=== PATIENT | female | born 1985 | race Caucasian/White ===

== ENCOUNTER → 2018-10-16 14:41 | Outpatient (CLI) | payer OTHER, SELFPAY ==
[2018-10-21 10:33] LABS: HPV Reflexed? NOT INDICATED
== END ==
PROVIDERS: Referring Provider Obstetrics & Gynecology; Visit Provider Obstetrics & Gynecology
DX: Z12.4 Encounter for screening for malignant neoplasm of cervix (principal)
CPT/HCPCS: 88175; G0145

== ENCOUNTER → 2019-12-01 14:01 | Outpatient (CLI) | payer OTHER, SELFPAY ==
[2019-12-04 09:07] LABS: Age Gdln ACOG Testing 30-65 (.)
[2019-12-04 13:28] LABS: HPV APTIMA, High Risk Negative (Negative); HPV Reflexed? YES, CHARGE PATIENT
== END ==
PROVIDERS: Visit Provider Obstetrics & Gynecology
DX: Z12.4 Encounter for screening for malignant neoplasm of cervix (principal)
CPT/HCPCS: 87624; 88175; G0145

== ENCOUNTER → 2021-08-11 09:08 | Outpatient (CLI) | payer OTHER, SELFPAY ==
[2021-08-11 09:37] LABS: Absolute Lymphocyte Count 1.84 X10^3/uL (0.83-4.51); Basophil# 0.01 X10^3/uL; Basophil% 0.1 % (0-1); Eosinophil# 0.06 X10^3/uL; Eosinophils% 0.6 % (0-5); Hematocrit 45.9 % (37-47); Hemoglobin 15.3 g/dL (12.0-15.0); Lymphocyte # 1.84 X10^3/ul (0.83-4.51); Lymphocyte % 19.4 % (19-41); Mean Corp Hgb Conc 33.3 g/dL (32-36); Mean Corpuscular Hgb 30.5 pg (27.0-32.0); Mean Corpuscular Volume 91.4 fL (81-99); Mean Platelet Vol. 12.6 fl (6.2-12.0); Monocyte# 0.57 X10^3/uL; NRBC Flagged by Analyzer 0 % (0-5); Neutrophil # 6.97 X10^3/uL (2.7-7.7); Neutrophil % 73.5 % (47-70); Platelet Count 223 K/mm3 (150-450); RBC Distribution Width SD 40.2 fl (35.1-43.9); Red Blood Count 5.02 M/mm3 (4.2-5.4); White Blood Count 9.5 K/mm3 (4.4-11.0)
[2021-08-11 10:08] LABS: Hemoglobin A1c 5.1 % (3.8-5.6)
[2021-08-11 10:30] LABS: Cholesterol 204 mg/dL (200); Estradiol 67.6 pg/mL; Follicle Stimulating Hormone 6.6 mIU/mL; High Density Lipoprotein 66 mg/dL; Luteinizing Hormone 11.5 mIU/mL; T4 Free Direct 1.01 ng/dL (0.76-1.46); Thyroid Stim Hormone (TSH) 1.47 uIU/mL (0.358-3.74); Triglycerides 116 mg/dL; Very Low Density Lipoprotein 23 mg/dL (5-40)
[2021-08-11 10:55] LABS: HIV - WCH Non-Reactive (Nonreactive); Hepatitis B Surface Antigen Non-Reactive (Nonreactive); Hepatitis C Antibody Non-Reactive (Nonreactive); Rubella IgG Reactive (Nonreactive); Syphilis Antibodies Non-reactive
[2021-08-20 08:40] LABS: Testosterone Free 5.7 pg/mL (0.0-4.2)
== END ==
PROVIDERS: Visit Provider Obstetrics & Gynecology
DX: N93.9 Abnormal uterine and vaginal bleeding, unspecified (principal)
CPT/HCPCS: 36415; 80061; 82627; 82670; 83001; 83002; 83036; 84402; 84439; 84443; 85025; 86703; 86762; 86780; 86803; 87340; 82626

== ENCOUNTER → 2022-04-27 | Outpatient (CLI) | payer OTHER, SELFPAY ==
[2022-04-27 11:22] LABS: Glucose Challenge Gest 1H 50g 70 mg/dL (70-140)
== END | disposition home or self-care (01) ==
LOC: WOBLAB 08:42
PROVIDERS: Visit Provider Obstetrics & Gynecology
DX: Z34.82 Encounter for supervision of other normal pregnancy, second trimester (principal)
CPT/HCPCS: 36415; 82950

== ENCOUNTER → 2022-08-24 | Outpatient (CLI) | payer OTHER, SELFPAY ==
[2022-08-24 09:21] LABS: Absolute Lymphocyte Count 1.22 X10^3/uL (0.83-4.51); Basophil# 0.02 X10^3/uL; Basophil% 0.2 % (0-1); Eosinophil# 0.04 X10^3/uL; Eosinophils% 0.4 % (0-5); Hematocrit 38.7 % (37-47); Hemoglobin 13.3 g/dL (12.0-15.0); Lymphocyte # 1.22 X10^3/ul (0.83-4.51); Lymphocyte % 11.1 % (19-41); Mean Corp Hgb Conc 34.4 g/dL (32-36); Mean Corpuscular Hgb 30.2 pg (27.0-32.0); Mean Platelet Vol. 12.5 fl (6.2-12.0); Monocyte# 0.66 X10^3/uL; NRBC Flagged by Analyzer 0 % (0-5); Neutrophil # 8.96 X10^3/uL (2.7-7.7); Neutrophil % 81.4 % (47-70); Platelet Count 167 K/mm3 (150-450); RBC Distribution Width CV 12.7 % (11.6-14.6); RBC Distribution Width SD 40.8 fl (35.1-43.9)
[2022-08-24 09:44] LABS: Glucose Challenge Gest 1H 50g 120 mg/dL (70-140)
== END | disposition home or self-care (01) ==
LOC: WOBLAB 09:11
PROVIDERS: Visit Provider Obstetrics & Gynecology
DX: Z34.83 Encounter for supervision of other normal pregnancy, third trimester (principal)
CPT/HCPCS: 36415; 82950; 85025; 86850

== ENCOUNTER 2022-11-01 06:45 | Inpatient (IN) | payer OTHER, SELFPAY ==
[2022-11-01] VITALS (59 sets, daily range): BP systolic 116–198; BP diastolic 59–85; PULSE 58–75; RESP 14–17; TEMP 36.2–37.2; O2SAT 94–98; BMI 42.5
[2022-11-01] MEDS: Lactated Ringers 1,000 ML 50 ML IV (08:10)
[2022-11-01 08:32] LABS: Absolute Lymphocyte Count 1.46 X10^3/uL (0.83-4.51); Absolute Neutrophil Count 8.7 X10^3/uL (2.0-7.7); Basophil# 0.01 X10^3/uL; Basophil% 0.1 % (0-1); Eosinophil# 0.04 X10^3/uL; Eosinophils% 0.4 % (0-5); Hematocrit 42.1 % (37-47); Hemoglobin 14.1 g/dL (12.0-15.0); Lymphocyte # 1.46 X10^3/ul (0.83-4.51); Mean Corp Hgb Conc 33.5 g/dL (32-36); Mean Corpuscular Hgb 29.7 pg (27.0-32.0); Mean Corpuscular Volume 88.8 fL (81-99); Mean Platelet Vol. 13.9 fl (6.2-12.0); Monocyte# 0.88 X10^3/uL; Monocyte% 7.9 % (0-10); NRBC Flagged by Analyzer 0 % (0-5); Neutrophil % 77.7 % (47-70); Platelet Count 155 K/mm3 (150-450); RBC Distribution Width CV 13.1 % (11.6-14.6); RBC Distribution Width SD 42.3 fl (35.1-43.9); Red Blood Count 4.74 M/mm3 (4.2-5.4); White Blood Count 11.2 K/mm3 (4.4-11.0)
[2022-11-01] MEDS: miSOPROStol 25 MCG TABLET VAGINAL ×4 (08:45→21:29)
[2022-11-01 08:57] LABS: AST(SGOT) 22 U/L (15-37); Alanine Aminotransfer ALT/SGPT 25 U/L (13-56); EST Glomerular Filtration Rate 101 mL/min (>60); Est Glom Filt Rate - Afr Amer 123 mL/min (>60); Estimated Creatinine Clearance 120.15 ml/min; Uric Acid 4.9 mg/dL (2.6-6.0)
[2022-11-01 10:42] LABS: Protein, Urine (Random) < 6.0 mg/dL (<11.9); Protein:Creat Ratio 276 mg/g CRE (0-200)
[2022-11-01 12:19] LABS: Hepatitis B Surface Antigen Non-Reactive (Nonreactive); Hepatitis C Antibody Non-Reactive (Nonreactive)
[2022-11-01] MEDS: Penicillin G 3,000,000 Units 50 ML 100 UNITS IV ×2 (14:13→21:40)
[2022-11-01] MEDS: Labetalol (Prefilled) 20 MG/4 ML IV (15:09)
[2022-11-01] MEDS: 0.9% Saline Lock 10 ML Syringe IV (15:30)
[2022-11-01] MEDS: Labetalol 100 MG Tablet PO ×2 (15:37→21:40)
[2022-11-01] MEDS: Magnesium Sulfate 4gm/100mL 4 GM/100 ML IV.SOLN. IV (15:39)
[2022-11-01] MEDS: Magnesium Sulfate 4gm/100mL 2 GM/50 ML IV.SOLN. IV (15:58)
[2022-11-01] MEDS: Magnesium Sulfate 20 GM/500 ML BAG IV (16:14)
--- NOTE | 2022-11-01 17:13 | PCM.HP.BLA ---
History and Physical Date of Admission: 11/01/22 Chief complaint: Induction of labor term History present illness: 37-year-old G1, P0 at 39 weeks and 1 day with SHIMA 11/07/2022 arrives for induction of labor at term. Denies headache, vision changes, chest pain, shortness of breath, nausea vomit, right upper quadrant pain. Patient states good movement. is complicated by AMA Obstetric history: G1: Current Past medical history: None Medications: None Allergies: Hydrocodone Past surgical history: ACL Social history: Denies smoking, alcohol use, drug use Family history: Denies history DVT or PE Review of systems: Besides above pertinent positives a full review of systems was performed and found to be negative Physical exam: Vitals: Pulse 64 SPO2 97% on room air General: Normal-appearing no acute distress HEENT: Normocephalic/atraumatic no cervical of adenopathy Cardiac/respiratory: No use accessory muscles, nonlabored breathing Abdomen: Soft, nontender, gravid Extremities: No peripheral edema normal peripheral pulses Psych: Normal affect normal demeanor nonpressured speech Labs: White blood cell count 11.2 hemoglobin 14.1 hematocrit 42.1% platelets 155. Creatinine 0.7 AST 22 ALT 25 urine protein creatinine ratio 0.276. Blood type O- antibody negative Assessment plan: 37-year-old at 39 weeks and 1 day arrived for induction of labor at term, was started on Cytotec 25 mcg vaginally noted to have severe range blood pressures treated with labetalol 20 mg IV and maintenance dose of labetalol 100 mg twice daily was started. Magnesium 6 g bolus at 2 g an hour was started. Patient diagnosed with preeclampsia with severe features based on severe range blood pressures. Educated patient on severe preeclampsia and its diagnosis and treatment. We will continue to monitor blood pressures. HELLP labs stable. Continue induction via Cytotec. AMA, NIPT within normal limits. GBS positive continue penicillin. Anesthesia to see
[2022-11-01] MEDS: Penicillin G 3,000,000 Units 50 ML 60 UNITS IV (18:23)
[2022-11-01] MEDS: Acetaminophen 500 MG Tablet PO (19:50)
[2022-11-01] MEDS: Ondansetron 4 MG/2 ML Vial IV (22:50)
[2022-11-02] VITALS (115 sets, daily range): BP systolic 95–169; BP diastolic 51–90; PULSE 26–109; RESP 16–21; TEMP 36.1–37.3; O2SAT 80–98
--- NOTE | 2022-11-02 01:35 | NURSING ---
urine hat moved back in toilet
[2022-11-02] MEDS: LACTATED RINGERS 500 ML 999 ML IV ×3 (01:39→23:30)
[2022-11-02] MEDS: Magnesium Sulfate 20 GM/500 ML BAG IV ×3 (01:40→21:13)
[2022-11-02] MEDS: Oxytocin 15 Units/NS 250ml 15 UNITS/250 ML IV.SOLN 2 UNITS IV (01:42)
[2022-11-02] MEDS: Penicillin G 3,000,000 Units 50 ML 100 UNITS IV ×6 (02:11→22:10)
[2022-11-02] MEDS: fentaNYL-bupivacaine (epidural) 100 ML BAG EPIDURAL ×5 (02:46→21:10)
[2022-11-02] MEDS: Ondansetron 4 MG/2 ML Vial IV ×4 (03:23→21:23)
[2022-11-02] MEDS: Mag Hydrox/Al Hydrox/Simeth 30 ML UDC PO (05:25)
--- NOTE | 2022-11-02 08:42 | PCM.PN.OB ---
Subjective Subjective Patient uncomfortable on left side, improved comfort on right side after epidural placement Objective Data Objective Data Vital Signs: Vital Signs Temp Pulse Resp BP Pulse Ox O2 Del Method 97.2 F L 70 18 169/90 H 93 Room Air 11/02/22 08:00 11/02/22 08:17 11/02/22 08:00 11/02/22 08:17 11/02/22 08:11 11/02/22 08:00 Oxygen Delivery Method Room Air Weight: 296 lb Body Mass Index (BMI) 42.5 Intake & Output: Intake and Output for Last 24 Hours 10/31/22 11/01/22 11/02/22 23:59 23:59 23:59 Intake Total 1044.59 / 1044.59 1816.94 / 1816.94 Output Total 530 / 530 757 / 757 Balance 514.59 / 514.59 1059.94 / 1059.94 Lab / Micro Data Result Diagrams: 11/01/22 08:10 11/01/22 08:10 Labs: Laboratory Results - last 24 hr 11/01/22 08:10: Blood Type O NEGATIVE, Antibody Screen NEGATIVE 11/01/22 08:10: Creatinine 0.70, Estim Creat Clear Calc 120.15, Est GFR (MDRD) Af Amer 123, Est GFR (MDRD) Non-Af 101, Uric Acid 4.9, AST 22, ALT 25 11/01/22 10:15: U Random Total Protein < 6.0, Urine Creatinine 21.00, Protein/Creatinin Ratio 276 H 11/01/22 11:15: Hep Bs Antigen Non-Reactive, Hepatitis C Antibody Non-Reactive Physical Exam Const alert, oriented x3, no apparent distress, average body habitus, healthy appearing and well nourished HEENT normocephalic and moist oral mucous membranes Eyes PERRL Resp normal respiratory effort, no retractions and no use of accessory muscles Narrative: Cervical exam: 4/60/-3 Extremity normal to inspection, full ROM and no clubbing, cyanosis or edema Neuro moves all extremities and no focal motor deficits Psych mental status grossly normal, affect normal, speech normal and activity/motor behavior normal Assessment & Plan (1) : PLAN: Patient seen and examined. Epidural placed several hours ago but patient with severe left-sided pain with contractions. Will have anesthesia reevaluate patient. Discussed early results of replacement of epidural versus section with spinal. Patient states understanding and uncertain what she wants to do would like to see anesthesia. Preeclampsia with severe features, nonpersistent severe range blood pressures will treat if persistent and discussed with anesthesia pending their game plan.
[2022-11-02] MEDS: Labetalol 100 MG Tablet PO ×2 (10:02→21:32)
[2022-11-02] MEDS: Lactated Ringers 1,000 ML 50 ML IV (10:43)
[2022-11-02] MEDS: Acetaminophen 500 MG Tablet PO (11:58)
[2022-11-02] MEDS: 0.9% Saline Lock 10 ML Syringe IV (14:12)
[2022-11-02] MEDS: proCHLORPERazine 10 MG/2 ML Vial IV (14:37)
--- NOTE | 2022-11-02 15:12 | PN.OBGYN_ITS ---
Subjective Subjective Patient now with much improved comfort with replaced epidural. Resting comfortably in bed Objective Data Objective Data Vital Signs: Vital Signs Temp Pulse Resp BP Pulse Ox O2 Del Method 98.2 F 65 18 115/56 L 97 Room Air 11/02/22 14:00 11/02/22 14:55 11/02/22 14:00 11/02/22 14:55 11/02/22 14:12 11/02/22 14:00 Oxygen Delivery Method Room Air Weight: 296 lb Body Mass Index (BMI) 42.5 Intake & Output: Intake and Output for Last 24 Hours 10/31/22 11/01/22 11/02/22 23:59 23:59 23:59 Intake Total 1044.59 / 1044.59 3291.34 / 3291.34 Output Total 530 / 530 1627 / 1627 Balance 514.59 / 514.59 1664.34 / 1664.34 Lab / Micro Data Result Diagrams: 11/01/22 08:10 11/01/22 08:10 Physical Exam Const alert, oriented x3, no apparent distress, average body habitus, healthy appearing and well nourished HEENT normocephalic and moist oral mucous membranes Eyes PERRL Neck full ROM Resp normal respiratory effort, no retractions and no use of accessory muscles Narrative: Cervical exam: Unchanged. AROM clear fluid. FSE placed, IUPC placed Extremity normal to inspection, full ROM and no clubbing, cyanosis or edema Neuro moves all extremities and no focal motor deficits Psych mental status grossly normal, affect normal, speech normal and activity/motor behavior normal Assessment & Plan (1) : PLAN: Patient seen and examined. AROM clear fluid. IUPC and FSE placed. Now patient comfortable with epidural after replacement of epidural. We will continue to titrate Pitocin. Preeclampsia with severe features continue ma gnesium and will continue to monitor blood pressures
--- NOTE | 2022-11-02 21:14 | PCM.PN.OB ---
Subjective Subjective Patient now comfortable with epidural. Mild nausea Objective Data Objective Data Vital Signs: Vital Signs Temp Pulse Resp BP Pulse Ox O2 Del Method 99.2 F H 75 20 H 117/66 96 Room Air 11/02/22 20:36 11/02/22 20:36 11/02/22 20:36 11/02/22 20:36 11/02/22 20:36 11/02/22 20:36 Oxygen Delivery Method Room Air Weight: 296 lb Body Mass Index (BMI) 42.5 Intake & Output: Intake and Output for Last 24 Hours 10/31/22 11/01/22 11/02/22 23:59 23:59 23:59 Intake Total 1044.59 / 1044.59 3966.84 / 3966.84 Output Total 530 / 530 2382 / 2382 Balance 514.59 / 514.59 1584.84 / 1584.84 Lab / Micro Data Result Diagrams: 11/01/22 08:10 11/01/22 08:10 Physical Exam Const alert, oriented x3, no apparent distress, average body habitus, healthy appearing and well nourished HEENT normocephalic and moist oral mucous membranes Eyes PERRL Neck full ROM Resp normal respiratory effort, no retractions and no use of accessory muscles Narrative: Cervical exam: Unchanged. FSE replaced Extremity normal to inspection and full ROM Skin no rashes or lesions noted Neuro moves all extremities and no focal motor deficits Psych mental status grossly normal, affect normal, speech normal and activity/motor behavior normal Assessment & Plan (1) : PLAN: Patient seen and examined. Called by nursing to evaluate and educate for section. Patient overall with exhaustion and considering section. Educated patient on risk benefits alternatives section we discussed risk of infection, risk with her BMI, risk with her preeclampsia with severe features on magnesium, risk of blood loss, discussed postoperative recovery. All questions answered from patient and patient's partner. Discussed risk benefits alternatives of continuing induction. Patient states understanding and elects to continue induction. We will continue to titrate Pitocin. FSE replaced. Educated patient on expectations for induction going forward. Patient appreciative
[2022-11-02] MEDS: Amnioinfusion- 0.9% NS 1,000 ML IV.SOLN. 1000 ML INTRA-UTER (21:56)
[2022-11-03] VITALS (81 sets, daily range): BP systolic 108–152; BP diastolic 56–84; PULSE 63–83; RESP 16–24; TEMP 36.2–37.3; O2SAT 90–100
[2022-11-03] MEDS: Ondansetron 4 MG/2 ML Vial IV (01:17)
[2022-11-03] MEDS: fentaNYL-bupivacaine (epidural) 100 ML BAG EPIDURAL ×2 (01:32→07:11)
[2022-11-03] MEDS: Penicillin G 3,000,000 Units 50 ML 100 UNITS IV ×2 (02:04→06:22)
[2022-11-03] MEDS: Oxytocin 15 Units/NS 250ml 15 UNITS/250 ML IV.SOLN 20 UNITS IV (04:00)
[2022-11-03] MEDS: Magnesium Sulfate 20 GM/500 ML BAG IV ×2 (07:15→17:20)
[2022-11-03] MEDS: Carboprost Tromethamine 250 MCG/ML Ampul IM (08:19)
[2022-11-03] MEDS: miSOPROStol 200 MCG Tablet 1000 MCG RC (08:37)
--- NOTE | 2022-11-03 08:46 | EX.PCM.OBRPT ---
Vaginal Delivery Operative Information Date of Procedure: 11/03/22 Findings Description of Procedure: Preop diagnosis: Term, preeclampsia with severe features, maternal exhaustion Postop diagnosis: Term, preeclampsia with severe features, maternal exhaustion Procedure: Vacuum-assisted vaginal delivery Surgeon: Lenin Padilla MD Anesthesia: Epidural EBL: 400 cc Complications: None Findings: Male in vertex position MICHELLE Apgars 8/9. Second-degree midline perineal laceration and periurethral laceration. Consent: Patient arrived for induction of labor with AMA at term found to have preeclampsia with severe features treated appropriately. Induction via Cytotec and later Pitocin. Patient subsequently became 10 cm dilated and began pushing. After 4 hours of pushing patient noted to be MICHELLE +2 station. Pelvis felt adequate and appropriate for vaginal delivery. Fetus palpated appropriate size. Patient was comfortable with epidural. Patient with maternal exhaustion. Discussed options for section versus vacuum assisted vaginal delivery educated patient on risk benefits alternatives of each procedure. Patient desired to proceed with vacuum delivery, patient understands risk of cephalhematoma for baby and shoulder dystocia. The process of the vacuum delivery was explained. Procedure: Fischer catheter in place emptying bladder. Vaginal examination reconfirmed MICHELLE +2 station. A Kiwi vacuum was applied over the sagittal suture about 3 cm in from the posterior fontanelle toward the face. Vacuum pressure was applied. The edge of the vacuum cup was carefully examined and no maternal tissue was entrapped under the cup. Right hand applied gentle horizontal traction along the axis of the pelvis and coordination with uterine contractions and maternal pushing. 1 pull with a vacuum was performed. The handle of the vacuum device was gradually elevated with the perineum has began to bulge. The cup did not pop off the head during the procedure. The cup was removed after the head was delivered. Head and shoulders were delivered with ease. Cord was clamped and cut. Baby handed off to patient. Placenta was delivered via cord traction and fundal massage. IV oxytocin was initiated in order to facilitate uterine contractions. Prophylactic Hemabate IM and rectal Cytotec 1000 mcg was given. Cervix and vaginal falk were thoroughly examined. Second-degree midline perineal laceration and periurethral laceration were noted and repaired in typical fashion. Infant was examined after delivery, no visible lacerations or bruises were found.
[2022-11-03] MEDS: Oxytocin 15 Units/NS 250ml 15 UNITS/250 ML IV.SOLN 83 UNITS IV (09:15)
[2022-11-03] MEDS: Lactated Ringers 1,000 ML 50 ML IV (09:49)
--- NOTE | 2022-11-03 11:25 | NURSING ---
Epidural catheter removed, blue tip intact.
[2022-11-03] MEDS: Labetalol 100 MG Tablet PO (11:26)
[2022-11-03] MEDS: Ibuprofen 600 MG Tablet PO ×2 (11:26→18:56)
[2022-11-03] MEDS: Benzocaine/Lanolin/Aloe Vera 1 SPRAY EACH TOPICAL (11:28)
[2022-11-03 12:14] LABS: Magnesium 6.2 mg/dL (1.6-2.6)
[2022-11-03 18:46] LABS: Magnesium 6.3 mg/dL (1.6-2.6)
[2022-11-03] MEDS: Senna/Docusate Sodium 1 Tablet PO (20:43)
[2022-11-03] MEDS: Acetaminophen 500 MG Tablet 1000 MG PO (20:43)
[2022-11-04] VITALS (23 sets, daily range): BP systolic 95–137; BP diastolic 47–69; PULSE 64–81; RESP 16–18; TEMP 36.2–36.8; O2SAT 90–98
[2022-11-04] MEDS: Ibuprofen 600 MG Tablet PO ×3 (01:55→16:23)
[2022-11-04] MEDS: Magnesium Sulfate 20 GM/500 ML BAG IV (03:26)
[2022-11-04] MEDS: Acetaminophen 500 MG Tablet 1000 MG PO ×3 (04:36→20:12)
--- NOTE | 2022-11-04 11:15 | PN.OBGYN_ITS ---
Subjective Subjective No overnight complaints. Denies headache, visual change, chest pain, shortness of breath, nausea vomit, right upper quadrant pain. Objective Data Objective Data Vital Signs: Vital Signs Temp Pulse Resp BP Pulse Ox O2 Del Method 98 F 81 16 135/65 H 98 Room Air 11/04/22 08:24 11/04/22 09:54 11/04/22 08:24 11/04/22 09:54 11/04/22 08:24 11/04/22 08:24 Oxygen Delivery Method Room Air Weight: 296 lb Body Mass Index (BMI) 42.5 Intake & Output: Intake and Output for Last 24 Hours 11/02/22 11/03/22 11/04/22 23:59 23:59 23:59 Intake Total 4641.84 / 5141.84 4085.32 / 4085.32 1415.58 / 1415.58 Output Total 2382 / 2382 2429 / 2429 300 / 300 Balance 2259.84 / 2759.84 1656.32 / 1656.32 1115.58 / 1115.58 Lab / Micro Data Result Diagrams: 11/01/22 08:10 11/01/22 08:10 Labs: Laboratory Results - last 24 hr 11/03/22 11:40: Screen NEGATIVE, Baby's Blood Type B POSITIVE, Baby's COLE NEGATIVE 11/03/22 11:40: Magnesium 6.2 H* 11/03/22 18:00: Magnesium 6.3 H* Physical Exam Const alert, oriented x3, no apparent distress, average body habitus, healthy appea ring and well nourished HEENT normocephalic and moist oral mucous membranes Eyes PERRL Neck full ROM Resp normal respiratory effort, no retractions and no use of accessory muscles GI GI Narrative: Soft, nontender, uterus firm and below umbilicus Extremity normal to inspection, full ROM and no clubbing, cyanosis or edema Neuro moves all extremities and no focal motor deficits Psych mental status grossly normal, affect normal, speech normal and activity/motor behavior normal Assessment & Plan (1) Vaginal delivery: PLAN: day 1 status post vacuum-assisted vaginal delivery for maternal exhaustion. Breast-feeding. Preeclampsia with severe features based on severe range blood pressures status post magnesium. Continue labetalol 100 mg p.o. twice daily. We will continue to monitor blood pressures. Likely home on day 3
[2022-11-04] MEDS: Labetalol 100 MG Tablet PO ×2 (11:18→21:56)
[2022-11-04] MEDS: 0.9% Saline Lock 10 ML Syringe IV (21:57)
[2022-11-05] VITALS (14 sets, daily range): BP systolic 133–200; BP diastolic 65–90; PULSE 55–73; RESP 15–18; TEMP 36.7–37.2; O2SAT 96–98
[2022-11-05] MEDS: Ibuprofen 600 MG Tablet PO ×3 (01:59→23:59)
[2022-11-05] MEDS: Acetaminophen 500 MG Tablet 1000 MG PO ×2 (04:48→21:36)
[2022-11-05] MEDS: Benzocaine/Lanolin/Aloe Vera 1 SPRAY EACH TOPICAL (04:48)
[2022-11-05] MEDS: Labetalol 100 MG Tablet PO ×2 (09:57→21:36)
--- NOTE | 2022-11-05 10:26 | PCM.PN.OB ---
Subjective Subjective Patient feeling well. No headache or vision changes, chest pain or shortness of breath, nausea or vomiting. Working on breast-feeding. Lochia minimal. Objective Data Objective Data Vital Signs: Vital Signs Temp Pulse Resp BP Pulse Ox O2 Del Method 98.9 F 69 16 145/69 H 98 Room Air 11/05/22 08:37 11/05/22 09:56 11/05/22 08:37 11/05/22 09:57 11/05/22 08:37 11/05/22 08:37 Oxygen Delivery Method Room Air Weight: 134.263 kg Body Mass Index (BMI) 42.5 Intake & Output: Intake and Output for Last 24 Hours 11/03/22 11/04/22 11/05/22 23:59 23:59 23:59 Intake Total 4085.32 / 4085.32 1415.58 / 1415.58 Output Total 2429 / 2429 300 / 300 Balance 1656.32 / 1656.32 1115.58 / 1115.58 Lab / Micro Data Result Diagrams: 11/01/22 08:10 11/01/22 08:10 Physical Exam Const alert, oriented x3 and no apparent distress HEENT normocephalic Head and Scalp: atraumatic Neck full ROM Resp normal respiratory effort Cardio regular rate GI normal to inspection, nondistended, normoactive bowel sounds GI Narrative: Uterus 2 cm below umbilicus Back/Spine normal ROM Extremity normal to inspection Extremity Narrative: Minimal pedal edema Neuro no focal motor deficits and no sensory deficits noted Psych mental status grossly normal and affect normal Assessment & Plan (1) Vaginal delivery: PLAN: day 2 status post vacuum-assisted vaginal delivery. Complicated by severe preeclampsia. Blood pressures controlled on 100 mg labetalol twice daily. We will repeat labs today. Asymptomatic. Status post 24 hours of magnesium sulfate. Plan discharge home tomorrow with 1 week blood pressure follow-up. (2) Severe pre-eclampsia:
[2022-11-05 11:38] LABS: Absolute Neutrophil Count 7.7 X10^3/uL (2.0-7.7); Basophil# 0.01 X10^3/uL; Basophil% 0.1 % (0-1); Eosinophil# 0.15 X10^3/uL; Eosinophils% 1.5 % (0-5); Mean Corp Hgb Conc 34.4 g/dL (32-36); Mean Corpuscular Hgb 31.2 pg (27.0-32.0); Mean Corpuscular Volume 90.7 fL (81-99); Mean Platelet Vol. 12.4 fl (6.2-12.0); Monocyte# 0.61 X10^3/uL; Monocyte% 6.1 % (0-10); NRBC Flagged by Analyzer 0 % (0-5); Neutrophil # 7.73 X10^3/uL (2.7-7.7); Neutrophil % 77.6 % (47-70); Platelet Count 139 K/mm3 (150-450); RBC Distribution Width CV 13.4 % (11.6-14.6); RBC Distribution Width SD 43.8 fl (35.1-43.9); Red Blood Count 3.53 M/mm3 (4.2-5.4)
[2022-11-05 11:55] LABS: ALB/GLOB Ratio 0.6 RATIO (0.9-2.4); AST(SGOT) 45 U/L (15-37); Alanine Aminotransfer ALT/SGPT 64 U/L (13-56); Albumin, Serum 2.1 g/dL (3.2-5.0); Alkaline Phosphatase 171 U/L (45-117); Anion Gap 9 (5-15); BUN 12 mg/dL (7-18); BUN/Creat Ratio 20.1 RATIO (10-20); Calcium,Total 8.4 mg/dL (8.5-10.1); Chloride 109 mmol/L (98-107); EST Glomerular Filtration Rate 121 mL/min (>60); Est Glom Filt Rate - Afr Amer 146 mL/min (>60); Estimated Creatinine Clearance 140.17 ml/min; Globulin 3.5 g/dL (2.2-4.2); Glucose 82 mg/dL (74-106); LDH 231 U/L (84-246); Potassium 4.1 mmol/L (3.5-5.1); Protein, Total 5.6 g/dL (6.4-8.2); Sodium Level 142 mmol/L (136-145)
[2022-11-05] MEDS: 0.9% Saline Lock 10 ML Syringe IV (19:11)
[2022-11-06] VITALS (13 sets, daily range): BP systolic 118–156; BP diastolic 64–90; PULSE 55–80; RESP 15–18; TEMP 36.2–37.2; O2SAT 95–99
[2022-11-06 04:38] LABS: Hematocrit 33.1 % (37-47); Hemoglobin 10.8 g/dL (12.0-15.0); Mean Corp Hgb Conc 32.6 g/dL (32-36); Mean Corpuscular Hgb 29.9 pg (27.0-32.0); Mean Corpuscular Volume 91.7 fL (81-99); Mean Platelet Vol. 12.8 fl (6.2-12.0); Platelet Count 149 K/mm3 (150-450); RBC Distribution Width CV 13.2 % (11.6-14.6); RBC Distribution Width SD 44.4 fl (35.1-43.9); Red Blood Count 3.61 M/mm3 (4.2-5.4); White Blood Count 10.2 K/mm3 (4.4-11.0)
[2022-11-06 05:05] LABS: ALB/GLOB Ratio 0.7 RATIO (0.9-2.4); AST(SGOT) 65 U/L (15-37); Alanine Aminotransfer ALT/SGPT 90 U/L (13-56); Albumin, Serum 2.3 g/dL (3.2-5.0); Alkaline Phosphatase 161 U/L (45-117); Anion Gap 6 (5-15); BUN 11 mg/dL (7-18); BUN/Creat Ratio 18.9 RATIO (10-20); Calcium,Total 8.7 mg/dL (8.5-10.1); Chloride 109 mmol/L (98-107); Creatinine, Serum 0.58 mg/dL (0.55-1.02); EST Glomerular Filtration Rate 124 mL/min (>60); Est Glom Filt Rate - Afr Amer 150 mL/min (>60); Globulin 3.4 g/dL (2.2-4.2); Glucose 80 mg/dL (74-106); Potassium 3.7 mmol/L (3.5-5.1); Protein, Total 5.7 g/dL (6.4-8.2); Sodium Level 141 mmol/L (136-145)
--- NOTE | 2022-11-06 08:36 | PN.OBGYN_ITS ---
Subjective Subjective Patient feeling well aside from some sciatic pain. Frustrated that she would like to go home today. Working on breast-feeding and pumping. Objective Data Objective Data Vital Signs: Vital Signs Temp Pulse Resp BP Pulse Ox O2 Del Method 98.8 F 69 18 148/85 H 95 Room Air 11/06/22 08:00 11/06/22 08:00 11/06/22 08:00 11/06/22 08:00 11/06/22 08:00 11/06/22 08:00 Oxygen Delivery Method Room Air Weight: 134.263 kg Body Mass Index (BMI) 42.5 Intake & Output: Intake and Output for Last 24 Hours 11/04/22 11/05/22 11/06/22 23:59 23:59 23:59 Intake Total 1415.58 / 1415.58 Output Total 300 / 300 Balance 1115.58 / 1115.58 Lab / Micro Data Attestation: I reviewed the patient's lab results. Result Diagrams: 11/06/22 04:20 11/06/22 04:20 Labs: Laboratory Results - last 24 hr 11/05/22 11:30: Sodium 142, Potassium 4.1, Chloride 109 H, Carbon Dioxide 24.0, Anion Gap 9, BUN 12, Creatinine 0.60, Estim Creat Clear Calc 140.17, Est GFR (MDRD) Af Amer 146, Est GFR (MDRD) Non-Af 121, BUN/Creatinine Ratio 20.1 H, Glucose 82, Calcium 8.4 L, Total Bilirubin 0.20, AST 45 H, ALT 64 H, Alkaline Phosphatase 171 H, Lactate Dehydrogenase 231, Total Protein 5.6 L, Albumin 2.1 L , Globulin 3.5, Albumin/Globulin Ratio 0.6 L 11/05/22 11:30: WBC 10.0, RBC 3.53 L, Hgb 11.0 L, Hct 32.0 L, MCV 90.7, MCH 31 .2, MCHC 34.4, RDW Std Deviation 43.8, RDW Coeff of Fernando 13.4, Plt Count 139 L, MPV 12.4 H, Immature Gran % (Auto) 0.700, Neut % (Auto) 77.6 H, Lymph % (Auto) 14.0 L, Terrell % (Auto) 6.1, Eos % (Auto) 1.5, Baso % (Auto) 0.1, Absolute Neuts (auto) 7.7, Absolute Lymphs (auto) 1.40, Nucleated RBC % 0 11/06/22 04:20: WBC 10.2, RBC 3.61 L, Hgb 10.8 L, Hct 33.1 L, MCV 91.7, MCH 29.9, MCHC 32.6 D, RDW Std Deviation 44.4 H, RDW Coeff of Fernando 13.2, Plt Count 149 L, MPV 12.8 H 11/06/22 04:20: Sodium 141, Potassium 3.7, Chloride 109 H, Carbon Dioxide 26.0, Anion Gap 6, BUN 11, Creatinine 0.58, Estim Creat Clear Calc 145.00, Est GFR (MDRD) Af Amer 150, Est GFR (MDRD) Non-Af 124, BUN/Creatinine Ratio 18.9, Glucose 80, Calcium 8.7, Total Bilirubin 0.30, AST 65 H, ALT 90 H, Alkaline Phosphatase 161 H, Total Protein 5.7 L, Albumin 2.3 L, Globulin 3.4, Albumi n/Globulin Ratio 0.7 L Physical Exam Const alert, oriented x3 and no apparent distress HEENT normocephalic Head and Scalp: atraumatic Neck full ROM Resp normal respiratory effort Cardio regular rate GI normal to inspection, nondistended, normoactive bowel sounds GI Narrative: Uterus 2 cm below umbilicus Back/Spine normal ROM Extremity normal to inspection Extremity Narrative: Minimal pedal edema Neuro no focal motor deficits and no sensory deficits noted Psych mental status grossly normal and affect normal Assessment & Plan (1) Severe pre-eclampsia: (2) Vaginal delivery: PLAN: day 3 status post vacuum-assisted vaginal delivery. Complicated by severe preeclampsia. Blood pressures controlled on 100 mg labetalol twice daily. Labs yesterday were within normal limits aside from slightly elevated AST and ALT. Repeat today showed increasing AST and ALT. Reviewed results with the patient. Recommend repeat labs this afternoon and tomorrow morning to assess for stability. Additionally patient had one-time severe range blood pressure yesterday afternoon, repeat was within normal limits. No changes to blood pressure medication at this time. Blood pressure cuff sent to pharmacy. If declining or stable, consider home tomorrow with follow-up in office on . Reviewed findings with patient and her husban d. Discussed recommendations at length. All questions answered. Reviewed plan with bedside nurse as well.
[2022-11-06] MEDS: Labetalol 100 MG Tablet PO (09:58)
[2022-11-06] MEDS: 0.9% Saline Lock 10 ML Syringe IV (11:47)
[2022-11-06 16:38] LABS: Hematocrit 36.3 % (37-47); Hemoglobin 12.4 g/dL (12.0-15.0); Mean Corp Hgb Conc 34.2 g/dL (32-36); Mean Corpuscular Hgb 31.2 pg (27.0-32.0); Mean Corpuscular Volume 91.4 fL (81-99); Mean Platelet Vol. 12.7 fl (6.2-12.0); Platelet Count 179 K/mm3 (150-450); RBC Distribution Width CV 13.2 % (11.6-14.6); Red Blood Count 3.97 M/mm3 (4.2-5.4); White Blood Count 11.4 K/mm3 (4.4-11.0)
[2022-11-06 17:12] LABS: ALB/GLOB Ratio 0.7 RATIO (0.9-2.4); AST(SGOT) 134 U/L (15-37); Alanine Aminotransfer ALT/SGPT 170 U/L (13-56); Albumin, Serum 2.6 g/dL (3.2-5.0); Alkaline Phosphatase 188 U/L (45-117); Anion Gap 5 (5-15); BUN 13 mg/dL (7-18); BUN/Creat Ratio 19.4 RATIO (10-20); Calcium,Total 9.5 mg/dL (8.5-10.1); Chloride 109 mmol/L (98-107); Creatinine, Serum 0.67 mg/dL (0.55-1.02); EST Glomerular Filtration Rate 105 mL/min (>60); Est Glom Filt Rate - Afr Amer 128 mL/min (>60); Estimated Creatinine Clearance 125.53 ml/min; Globulin 3.7 g/dL (2.2-4.2); Glucose 85 mg/dL (74-106); LDH 244 U/L (84-246); Potassium 3.9 mmol/L (3.5-5.1); Protein, Total 6.3 g/dL (6.4-8.2); Sodium Level 141 mmol/L (136-145)
[2022-11-06] MEDS: Lactated Ringers 1,000 ML 15 ML IV (18:32)
[2022-11-06] MEDS: Magnesium Sulfate 4gm/100mL 4 GM/100 ML IV.SOLN. IV (18:32)
[2022-11-06] MEDS: Magnesium Sulfate 4gm/100mL 2 GM/50 ML IV.SOLN. IV (18:55)
[2022-11-06] MEDS: Magnesium Sulfate 20 GM/500 ML BAG 50 GM CONT INF (19:08)
[2022-11-06] MEDS: Labetalol 100 MG Tablet 200 MG PO (21:05)
[2022-11-07] VITALS (20 sets, daily range): BP systolic 107–156; BP diastolic 57–86; PULSE 68–81; RESP 15–18; TEMP 36.1–36.7; O2SAT 94–100
[2022-11-07] MEDS: Magnesium Sulfate 20 GM/500 ML BAG 50 GM CONT INF (05:18)
[2022-11-07 05:50] LABS: Hematocrit 34.7 % (37-47); Hemoglobin 11.7 g/dL (12.0-15.0); Mean Corp Hgb Conc 33.7 g/dL (32-36); Mean Corpuscular Hgb 30.9 pg (27.0-32.0); Mean Corpuscular Volume 91.6 fL (81-99); Mean Platelet Vol. 12.2 fl (6.2-12.0); Platelet Count 182 K/mm3 (150-450); RBC Distribution Width CV 13.2 % (11.6-14.6); RBC Distribution Width SD 43.9 fl (35.1-43.9); Red Blood Count 3.79 M/mm3 (4.2-5.4)
--- NOTE | 2022-11-07 05:57 | PN.OBGYN_ITS ---
Subjective Subjective Bleeding minimal. Denies visual disturbances, chest pain or shortness of breath, nausea or vomiting, right upper quadrant pain. Reports mild left-sided headache. Objective Data Objective Data Vital Signs: Vital Signs Temp Pulse Resp BP Pulse Ox O2 Del Method 97.4 F L 74 18 130/74 H 96 Room Air 11/07/22 05:20 11/07/22 05:20 11/07/22 05:20 11/07/22 05:20 11/07/22 05:20 11/07/22 05:20 Oxygen Delivery Method Room Air Weight: 134.263 kg Body Mass Index (BMI) 42.5 Intake & Output: Intake and Output for Last 24 Hours 11/05/22 11/06/22 11/07/22 23:59 23:59 23:59 Intake Total 550 / 550 630 / 630 Output Total 600 / 600 400 / 400 Balance -50 / -50 230 / 230 Lab / Micro Data Attestation: I reviewed the patient's lab results. Result Diagrams: 11/07/22 05:38 11/06/22 16:20 Labs: Laboratory Results - last 24 hr 11/06/22 16:20: WBC 11.4 H, RBC 3.97 L, Hgb 12.4, Hct 36.3 L, MCV 91.4, MCH 31.2, MCHC 34.2, RDW Std Deviation 44.0 H, RDW Coeff of Fernando 13.2, Plt Count 179, MPV 12.7 H 11/06/22 16:20: Sodium 141, Potassium 3.9, Chloride 109 H, Carbon Dioxide 27.0, Anion Gap 5, BUN 13, Creatinine 0.67, Estim Creat Clear Calc 125.53, Est GFR (MDRD) Af Amer 128, Est GFR (MDRD) Non-Af 105, BUN/Creatinine Ratio 19.4, Glucose 85, Calcium 9.5, Total Bilirubin 0.30, AST 134 H, ALT 170 H, Alkaline Phosphatase 188 H, Lactate Dehydrogenase 244, Total Protein 6.3 L, Albumin 2.6 L , Globulin 3.7, Albumin/Globulin Ratio 0.7 L 11/07/22 05:38: WBC 9.0, RBC 3.79 L, Hgb 11.7 L, Hct 34.7 L, MCV 91.6, MCH 30.9, MCHC 33.7, RDW Std Deviation 43.9, RDW Coeff of Fernando 13.2, Plt Count 182, MPV 12.2 H Physical Exam Const alert, oriented x3 and no apparent distress HEENT normocephalic Head and Scalp: atraumatic Neck full ROM Resp normal respiratory effort Cardio regular rate GI normal to inspection, nondistended, normoactive bowel sounds GI Narrative: Uterus 2 cm below umbilicus Back/Spine normal ROM Extremity normal to inspection Extremity Narrative: Minimal pedal edema Neuro no focal motor deficits, no sensory deficits noted and deep tendon reflexes 2+ bilaterally Motor Exam: clonus absent Psych mental status grossly normal and affect normal Assessment & Plan (1) Severe pre-eclampsia: PLAN: day 4 status post vacuum-assisted vaginal delivery. Complicated by severe preeclampsia. Blood pressures controlled on 200 mg labetalol twice daily, increased evening of 11/06. Labs continue to trend upwards yesterday with a doubling in 12 hours. Patient was replaced on magnesium sulfate for 24 hours. We will continue labs every 12 hours. Reports mild headache this morning. Lovenox for DVT prophylaxis. (2) Vaginal delivery: PLAN: .
[2022-11-07 06:09] LABS: ALB/GLOB Ratio 0.7 RATIO (0.9-2.4); AST(SGOT) 139 U/L (15-37); Alanine Aminotransfer ALT/SGPT 210 U/L (13-56); Albumin, Serum 2.5 g/dL (3.2-5.0); Alkaline Phosphatase 174 U/L (45-117); Anion Gap 8 (5-15); BUN 12 mg/dL (7-18); BUN/Creat Ratio 15.6 RATIO (10-20); Calcium,Total 8.4 mg/dL (8.5-10.1); Chloride 105 mmol/L (98-107); Creatinine, Serum 0.77 mg/dL (0.55-1.02); EST Glomerular Filtration Rate 90 mL/min (>60); Est Glom Filt Rate - Afr Amer 109 mL/min (>60); Estimated Creatinine Clearance 109.22 ml/min; Globulin 3.7 g/dL (2.2-4.2); Glucose 103 mg/dL (74-106); LDH 223 U/L (84-246); Magnesium 4.7 mg/dL (1.6-2.6); Potassium 3.8 mmol/L (3.5-5.1); Protein, Total 6.2 g/dL (6.4-8.2); Sodium Level 138 mmol/L (136-145)
--- NOTE | 2022-11-07 06:28 | NURSING ---
Addendum entered by Marla Tan Held 11/07/22 06:36: Magnesium titrated to 2.5GM/Hr and verified with Elly Schumacher RN. Original Note: Magnesium titrated to 2.5GM/Hr and verified with ELAINE Sanabria.
[2022-11-07] MEDS: Ibuprofen 600 MG Tablet PO (07:49)
[2022-11-07] MEDS: Enoxaparin 40 MG/0.4 ML Syringe SC (09:35)
[2022-11-07] MEDS: Labetalol 100 MG Tablet 200 MG PO ×2 (09:36→21:55)
[2022-11-07 12:14] LABS: Anion Gap 8 (5-15); BUN 11 mg/dL (7-18); BUN/Creat Ratio 14.1 RATIO (10-20); Calcium,Total 8.2 mg/dL (8.5-10.1); Chloride 105 mmol/L (98-107); Creatinine, Serum 0.78 mg/dL (0.55-1.02); EST Glomerular Filtration Rate 89 mL/min (>60); Est Glom Filt Rate - Afr Amer 107 mL/min (>60); Estimated Creatinine Clearance 107.82 ml/min; Glucose 115 mg/dL (74-106); Magnesium 6.2 mg/dL (1.6-2.6); Sodium Level 140 mmol/L (136-145)
[2022-11-07] MEDS: Magnesium Sulfate 20 GM/500 ML BAG 62.5 GM CONT INF (13:18)
[2022-11-07] MEDS: Ondansetron 4 MG/2 ML Vial IV (17:00)
[2022-11-07 18:12] LABS: Hemoglobin 13.2 g/dL (12.0-15.0); Mean Corp Hgb Conc 33.8 g/dL (32-36); Mean Corpuscular Hgb 31.4 pg (27.0-32.0); Mean Corpuscular Volume 92.6 fL (81-99); Mean Platelet Vol. 12.1 fl (6.2-12.0); Platelet Count 244 K/mm3 (150-450); RBC Distribution Width CV 13.3 % (11.6-14.6); RBC Distribution Width SD 45.1 fl (35.1-43.9); Red Blood Count 4.21 M/mm3 (4.2-5.4); White Blood Count 10.7 K/mm3 (4.4-11.0)
[2022-11-07 18:34] LABS: ALB/GLOB Ratio 0.7 RATIO (0.9-2.4); AST(SGOT) 125 U/L (15-37); Alanine Aminotransfer ALT/SGPT 232 U/L (13-56); Alkaline Phosphatase 221 U/L (45-117); Anion Gap 7 (5-15); BUN 13 mg/dL (7-18); BUN/Creat Ratio 15.4 RATIO (10-20); Calcium,Total 8.6 mg/dL (8.5-10.1); Chloride 105 mmol/L (98-107); Creatinine, Serum 0.84 mg/dL (0.55-1.02); EST Glomerular Filtration Rate 81 mL/min (>60); Est Glom Filt Rate - Afr Amer 98 mL/min (>60); Estimated Creatinine Clearance 100.12 ml/min; Globulin 4.3 g/dL (2.2-4.2); Glucose 104 mg/dL (74-106); LDH 252 U/L (84-246); Protein, Total 7.3 g/dL (6.4-8.2); Sodium Level 140 mmol/L (136-145)
[2022-11-07 18:39] LABS: Magnesium 6.7 mg/dL (1.6-2.6)
[2022-11-08 01:54] VITALS: BP 125/78; PULSE 66; RESP 16; TEMP 36.6; O2SAT 96
[2022-11-08 06:45] VITALS: BP 139/80; PULSE 68; RESP 16; TEMP 37.1; O2SAT 96
[2022-11-08 07:30] LABS: ALB/GLOB Ratio 0.7 RATIO (0.9-2.4); AST(SGOT) 79 U/L (15-37); Alanine Aminotransfer ALT/SGPT 185 U/L (13-56); Albumin, Serum 2.7 g/dL (3.2-5.0); Alkaline Phosphatase 193 U/L (45-117); Anion Gap 6 (5-15); BUN 14 mg/dL (7-18); BUN/Creat Ratio 17.9 RATIO (10-20); Calcium,Total 8.6 mg/dL (8.5-10.1); Chloride 107 mmol/L (98-107); Creatinine, Serum 0.78 mg/dL (0.55-1.02); EST Glomerular Filtration Rate 88 mL/min (>60); Est Glom Filt Rate - Afr Amer 107 mL/min (>60); Estimated Creatinine Clearance 107.82 ml/min; Globulin 3.8 g/dL (2.2-4.2); Glucose 90 mg/dL (74-106); Hematocrit 36.6 % (37-47); Hemoglobin 12.3 g/dL (12.0-15.0); LDH 196 U/L (84-246); Mean Corp Hgb Conc 33.6 g/dL (32-36); Mean Corpuscular Hgb 30.9 pg (27.0-32.0); Mean Platelet Vol. 12.2 fl (6.2-12.0); Platelet Count 204 K/mm3 (150-450); Potassium 3.9 mmol/L (3.5-5.1); Protein, Total 6.5 g/dL (6.4-8.2); RBC Distribution Width CV 13.1 % (11.6-14.6); RBC Distribution Width SD 44.3 fl (35.1-43.9); Red Blood Count 3.98 M/mm3 (4.2-5.4); Sodium Level 140 mmol/L (136-145); White Blood Count 9.5 K/mm3 (4.4-11.0)
--- NOTE | 2022-11-08 08:42 | PCM.DC.BLA ---
Discharge Summary Date of Admission: 11/01/22 Date of Discharge: 11/08/22 Summary: Patient arrived on 11/01/2022 for induction of labor at term. Subsequently diagnosed with preeclampsia with severe features based on severe range blood pressures treated with IV labetalol and p.o. labetalol and started on magnesium. Patient subsequently delivered via vacuum assisted vaginal delivery on 11/03/22. Patient's labs noted to have elevated LFTs, continue to monitor and repeated magnesium dosing on 11/06. Patient's LFTs trended downward and patient discharged home on 11/08/2022 on p.o. labetalol and Lovenox. Meaningful Use Info Meaningful Use Diagnoses (Choose all that apply): None applicable Discharge Plan Admission Admit Date/Time: 11/01/22 06:45 Primary Reason for Your Visit: Induction of labor Attending Provider: Lenin Padilla Primary Care Provider: Wei Parish Instructions Additional Instructions / Restrictions: Regular diet. Weightbearing as tolerated. Okay to shower. No intercourse for 4 to 6 weeks. Call if fevers, chills, chest pain, shortness of breath, headache, visual changes. Follow-up tomorrow for blood pressure check and labs. Discharge Orders/Prescriptions Prescriptions: New labetalol 100 mg Tablet 100 mg PO Q12H 30 Days Qty: 60 0RF Continued famotidine [Pepcid] 20 mg Tablet 20 mg PO DAILY [id number] 1 mg Tablet 1 tab PO DAILY ascorbic acid (vitamin C) 25 mg Tablet 25 mg PO DAILY polyethylene glycol 3350 [Miralax] 17 gram Powder In Packet 17 g PO QODAY Discontinued aspirin [Baby Aspirin] 81 mg Tablet,Chewable 81 mg PO DAILY Referrals / Follow Up: Wei Parish MD [Primary Care Provider] - Disposition Disposition (needs filled in before D/C Order can be placed): Home, Self Care
--- NOTE | 2022-11-08 08:44 | PN.OBGYN_ITS ---
Subjective Subjective No overnight complaints. Denies headache, dizziness, chest pain, shortness of breath, nausea vomit, right upper quadrant pain. Objective Data Objective Data Vital Signs: Vital Signs Temp Pulse Resp BP Pulse Ox O2 Del Method 98.8 F 68 16 139/80 H 96 Room Air 11/08/22 06:45 11/08/22 06:45 11/08/22 06:45 11/08/22 06:45 11/08/22 06:45 11/08/22 06:45 Oxygen Delivery Method Room Air Weight: 296 lb Body Mass Index (BMI) 42.5 Intake & Output: Intake and Output for Last 24 Hours 11/06/22 11/07/22 11/08/22 23:59 23:59 23:59 Intake Total 550 / 550 2242.13 / 2242.13 Output Total 600 / 600 1800 / 1800 Balance -50 / -50 442.13 / 442.13 Lab / Micro Data Result Diagrams: 11/08/22 06:55 11/08/22 06:55 Labs: Laboratory Results - last 24 hr 11/07/22 11:35: Sodium 140, Potassium 4.0, Chloride 105, Carbon Dioxide 27.0, Anion Gap 8, BUN 11, Creatinine 0.78, Estim Creat Clear Calc 107.82, Est GFR (MDRD) Af Amer 107, Est GFR (MDRD) Non-Af 89, BUN/Creatinine Ratio 14.1, Glucose 115 H, Calcium 8.2 L, Magnesium 6.2 H* 11/07/22 18:00: WBC 10.7, RBC 4.21, Hgb 13.2, Hct 39.0, MCV 92.6, MCH 31.4, MCHC 33.8, RDW Std Deviation 45.1 H, RDW Coeff of Fernando 13.3, Plt Count 244, MPV 12.1 H 11/07/22 18:00: Sodium 140, Potassium 4.0, Chloride 105, Carbon Dioxide 28.0, Anion Gap 7, BUN 13, Creatinine 0.84, Estim Creat Clear Calc 100.12, Est GFR (MDRD) Af Amer 98, Est GFR (MDRD) Non-Af 81, BUN/Creatinine Ratio 15.4, Glucose 104, Calcium 8.6, Total Bilirubin 0.40, AST 125 H, ALT 232 H, Alkaline Phosphatase 221 H, Lactate Dehydrogenase 252 H, Total Protein 7.3, Albumin 3.0 L , Globulin 4.3 H, Albumin/Globulin Ratio 0.7 L 11/07/22 18:00: Magnesium 6.7 H* 11/08/22 06:55: Sodium 140, Potassium 3.9, Chloride 107, Carbon Dioxide 27.0, An ion Gap 6, BUN 14, Creatinine 0.78, Estim Creat Clear Calc 107.82, Est GFR (MDRD) Af Amer 107, Est GFR (MDRD) Non-Af 88, BUN/Creatinine Ratio 17.9, Glucose 90, Calcium 8.6, Total Bilirubin 0.50, AST 79 H, ALT 185 H, Alkaline Phosphatase 193 H, Lactate Dehydrogenase 196, Total Protein 6.5, Albumin 2.7 L, Globulin 3.8, Albumin/Globulin Ratio 0.7 L 11/08/22 06:55: WBC 9.5, RBC 3.98 L, Hgb 12.3, Hct 36.6 L, MCV 92.0, MCH 30.9, MCHC 33.6, RDW Std Deviation 44.3 H, RDW Coeff of Fernando 13.1, Plt Count 204, MPV 12.2 H Physical Exam Const alert, oriented x3, no apparent distress, average body habitus, healthy appearing and well nourished HEENT normocephalic and moist oral mucous membranes Eyes PERRL Neck full ROM Resp normal respiratory effort, no retractions and no use of accessory muscles Extremity normal to inspection, full ROM and no clubbing, cyanosis or edema Neuro moves all extremities and no focal motor deficits Psych mental status grossly normal, affect normal, speech normal and activity/motor behavior normal Assessment & Plan (1) Vaginal delivery: PLAN: day 5 status post vacuum-assisted vaginal delivery. Preeclampsia with severe features, LFTs trending downward status post magnesium x2. Blood pressure stable on p.o. labetalol and patient asymptomatic. All lalit ssuring. Okay to discharge home today on labetalol p.o. and Lovenox. We will follow-up tomorrow for blood pressure check in office and repeat labs
[2022-11-08 09:47] VITALS: BP 143/76; PULSE 79; RESP 16; TEMP 36.6; O2SAT 96
[2022-11-08] MEDS: Enoxaparin 40 MG/0.4 ML Syringe SC (09:58)
[2022-11-08] MEDS: Labetalol 100 MG Tablet 200 MG PO (09:59)
--- NOTE | 2022-11-08 12:35 | CASEMGMT ---
Social work Labor and Delivery Unit Presented to patient's room at 1235 and found patient was discharged. Patient was discharged without being seen for social work consult. -MART Harris, PROFESSIONAL HEALTHCARE REPRESENTATIVE
== END 2022-11-08 11:15 | disposition home or self-care (01) | DRG 807 ==
PROVIDERS: Student in an Organized Health Care Education/Training Program; Admitting Provider Obstetrics & Gynecology; PCP Family Medicine; Referring Provider Obstetrics & Gynecology; Visit Provider Obstetrics & Gynecology
DX: O14.14 Severe pre-eclampsia complicating childbirth (principal); Z37.0 Single live birth; O99.344 Other mental disorders complicating childbirth; E66.01 Morbid (severe) obesity due to excess calories; F41.9 Anxiety disorder, unspecified; O70.1 Second degree perineal laceration during delivery; O75.81 Maternal exhaustion complicating labor and delivery; O99.214 Obesity complicating childbirth; O99.824 Streptococcus B carrier state complicating childbirth; Z3A.39 39 weeks gestation of pregnancy
CPT/HCPCS: 59025; 59050; 80048; 80053; 82565; 82570; 83615; 83735; 84156; 84450; 84460; 84550; 85025; 85027; 85461; 86803; 86850; 86900; 86901; 87340; 99218; J7030; J7120; A4216; G0378; J2405; J2790